=== PATIENT | male | born 1970 | race Caucasian/White ===

== ENCOUNTER 2020-06-27 11:09 | Emergency (ER) | payer OTHER, SELFPAY ==
[2020-06-27 11:13] VITALS: BP 139/95; PULSE 125; RESP 18; TEMP 36.6; O2SAT 100
--- NOTE | 2020-06-27 11:54 | PC.NURSE ---
PA in room now.
--- NOTE | 2020-06-27 12:05 | ED.GENADULT ---
HPI - General Adult General Chief complaint: Unspecified Stated complaint: Request Work Release Time Seen by Provider: 06/27/20 11:14 Source: patient Mode of arrival: ambulatory Limitations: no limitations History of Present Illness HPI narrative: Patient is a 50-year-old male who presents to emergency department requesting work release noting that earlier in the week he had had some nausea and vomiting which lasted a day and resolved patient notes that he missed work for this and that his work is requesting a work release patient notes that he has no symptoms at this time he is resting comfortably on arrival patient denies any current nausea vomiting diarrhea rectal bleeding melena hematemesis. Related Data Home Medications Medication Instructions Recorded Confirmed No Home Medications 06/27/20 06/27/20 Allergies Allergy/AdvReac Type Severity Reaction Status Date / Time No Known Allergies Allergy Verified 06/27/20 11:17 Review of Systems Review of Systems: All systems reviewed & are unremarkable except as noted in HPI and below PMFSH Social History Social History (Updated 06/27/20 @ 12:06 by Emil Montalvo PA-C) Smoking status: Current every day smoker Exam Narrative: Exam Narrative: GENERAL: Well-appearing, well-nourished, and in no acute distress. HEAD: Normocephalic, atraumatic. EYES: PERRLA and EOMI. ENT: Nares clear, no rhinorrhea or epistaxis. Mucous membranes moist. CHEST: Clear to auscultation. No respiratory distress. No wheezes rales or rhonchi HEART: Regular rate and rhythm. No murmur heard. Normal peripheral pulses. ABDOMEN: Soft, nontender, nondistended EXTREMITIES: Normal range of motion. No edema. SKIN: Warm, dry, no rash. NEURO: No focal deficits. Alert and oriented x3. PSYCH: Normal mood and affect. Course Course Emergency Course: Patient in the room no distress no symptoms at this time requesting for discharge notes that he feels fine Vital Signs Vital signs: Vital Signs Temperature 97.9 F 06/27/20 11:13 Pulse Rate 125 H 06/27/20 11:13 Respiratory Rate 18 06/27/20 11:13 Blood Pressure 139/95 H 06/27/20 11:13 Pulse Oximetry 100 06/27/20 11:13 Temperature 97.9 F 06/27/20 11:13 Pulse Rate 125 H 06/27/20 11:13 Respiratory Rate 18 02/12/21 11:13 Blood Pressure 139/95 H 06/27/20 11:13 Pulse Oximetry 100 06/27/20 11:13 Medical Decision Making MDM Narrative Medical decision making narrative: Patient presented with work release request has no symptoms or complaints at this time will follow with primary care Vital Signs Vital Signs: Vital Signs Temperature 97.9 F 06/27/20 11:13 Pulse Rate 125 H 06/27/20 11:13 Respiratory Rate 18 06/27/20 11:13 Blood Pressure 139/95 H 06/27/20 11:13 Pulse Oximetry 100 06/27/20 11:13 Temperature 97.9 F 06/27/20 11:13 Pulse Rate 125 H 06/27/20 11:13 Respiratory Rate 18 06/27/20 11:13 Blood Pressure 139/95 H 06/27/20 11:13 Pulse Oximetry 100 06/27/20 11:13 Discharge Plan Discharge Clinical Impression: Nausea & vomiting Patient Disposition: Home, Self-Care Condition: Stable Instructions: Antibiotic Form, Acute Nausea and Vomiting (ED) Additional Instructions: Follow up with your primary care doctor tommorrow to set up for reevaluation in the next 7 days. Go to ER for worsening pain, nausea/vomitting, fever/chills, penile discharge, chest pain, shortness of breath, blood in stools or urine, etc. or any other concerns. Take any prescribed medications as directed. If you do not have a drug allergy to tylenol or motrin and can tolerate it then take tylenol or motrin as needed for discomfort/pain. Prescriptions: No Action No Home Medications RF: 0 Follow-up/Referrals: PHYSICIAN,PLY CUTTER [Primary Care Provider] - Daniel Beltran MD [Physician] -
== END 2020-06-27 12:51 | disposition home or self-care (01) ==
PROVIDERS: Emergency Provider Emergency Medicine
DX: R11.2 Nausea with vomiting, unspecified (principal); F17.200 Nicotine dependence, unspecified, uncomplicated
CPT/HCPCS: 99281